=== PATIENT | male | born 2000 | race Caucasian/White ===

== ENCOUNTER 2023-04-24 04:39 | Outpatient (CLI) | payer MEDICAID, SELFPAY ==
[2023-04-24 12:44] LABS: Calculated LDL 143 mg/dL (<100); Cholesterol 213 mg/dL (<200); HDL Cholesterol 46 mg/dL (40-60); Triglyceride 122 mg/dL (<150)
[2023-04-24 12:45] LABS: Hemoglobin A1C 5.1 % (<5.7)
== END 2023-04-24 04:40 | disposition home or self-care (01) ==
LOC: LOS 04:40
PROVIDERS: PCP Nurse Practitioner Family; Visit Provider Nurse Practitioner Family
DX: Z13.220 Encounter for screening for lipoid disorders (principal); Z13.1 Encounter for screening for diabetes mellitus
CPT/HCPCS: 36415; 80061; 83036